=== PATIENT | female | born 1950 | race Caucasian/White ===

== ENCOUNTER 2016-07-27 23:10 | Emergency (ER) | payer OTHER ==
[~2016-07-27 23:10] MED LIST: AUGM875T PO; COLA100C3 PO; FLUT50SP EACH NARE; LIDO5CRE8 RECTAL; MEDR4PAK PO; MUPI2OIN TOPICAL; NAPR220T95 PO; OMEP20CA2 PO; TRIAPOW
[2016-07-27 23:13] VITALS: BP 156/76; PULSE 69; RESP 15; TEMP 98.5; O2SAT 97
[2016-07-28] MEDS ORDERED: RESP: ALBUTEROL 2.5 MG/IPRATROPIUM 0.5 MG NEB (SCH) NEB ONE
--- NOTE | 2016-07-28 00:16 | RADRPT ---
EXAM DATE/TIME: 07/28/2016 00:19 [place] COMPARISON: No previous studies available for comparison. INDICATIONS : Cough and cold symptoms. MEDICAL HISTORY : None. SURGICAL HISTORY : None. ENCOUNTER: Initial ACUITY: 1 day PAIN SCORE: 0/10 LOCATION: Bilateral chest FINDINGS: PA and lateral views of the chest demonstrate the lungs to be symmetrically aerated without evidence of mass, infiltrate or effusion. The cardiomediastinal contours are unremarkable. Osseous structure s are intact. CONCLUSION: No acute disease. Tay Velasquez MD on July 28, 2016 at 0:12 Board Certified Radiologist. This report was verified electronically.
[2016-07-28 00:38] LABS: AUTOMATED NEUTROPHIL # 3.9 TH/MM3 (1.8-7.7); BASOPHIL # 0.1 TH/MM3 (0-0.2); BASOPHIL % 0.9 % (0.0-2.0); EOSINOPHIL # 0.2 TH/MM3 (0-0.4); HEMATOCRIT 36.6 % (35.0-46.0); HEMO FLAGS DIFF FINAL; LYMPH % 14.4 % (9.0-44.0); LYMPHOCYTE # 0.8 TH/MM3 (1.0-4.8); MEAN CELL VOLUME 87.5 FL (80.0-100.0); MEAN CORPUSCULAR HEMOGLOBIN 28.7 PG (27.0-34.0); MEAN CORPUSCULAR HGB CONC 32.7 % (32.0-36.0); MONO % 10.5 % (0.0-8.0); NEUT % 71.2 % (16.0-70.0); PLATELET COUNT 206 TH/MM3 (150-450); RED BLOOD COUNT 4.18 MIL/MM3 (4.00-5.30); RED CELL DISTRIBUTION WIDTH 13.7 % (11.6-17.2); WHITE BLOOD COUNT 5.4 TH/MM3 (4.0-11.0)
[2016-07-28 00:54] LABS: BICARBONATE 27.4 MEQ/L (21.0-32.0); POTASSIUM 3.5 MEQ/L (3.5-5.1)
[2016-07-28] MEDS ORDERED: ALBUAER3 INH (01:11)
[2016-07-28] MEDS ORDERED: PRED50 PO (01:11)
--- NOTE | 2016-07-28 01:11 | PD ---
HPI Chief Complaint: Cold / Flu Symptoms Time Seen by Provider: 23:51 Travel History International Travel<30 days: No Contact w/Intl Traveler<30days: No Traveled to known affect area: No History of Present Illness HPI Patient is a 66-year-old female comes in complaining of a cough for the past 3 months. She has been to see her doctor here as well as a doctor in [facility] and has had 2 courses of antibiotics but continues to cough. She complains of nasal congestion, and feels a dripping in her throat. She only has pain when she coughs too much or feel short of breath when coughing. She has not had any fever, but reports chills. She says today she was feeling worse, so she came in today. She denies any leg swelling or leg pain. 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 She smoked cigarettes in the past, but very few. PFSH Past Medical History Medical History: Denies Significant Hx Respiratory: Yes (PNA) Past Surgical History Cholecystectomy: Yes Hysterectomy: Yes Social History Alcohol Use: No Tobacco Use: No Substance Use: No Allergies-Medications (Allergen,Severity, Reaction): Coded Allergies: No Known Allergies (Unverified , 07/27/16) Reported Meds & Prescriptions Reported Meds & Active Scripts Active Proair Hfa 8.5 GM Inh (Albuterol Sulfate) 90 Mcg/Act Aer 2 Puff INH Q4-6H PRN 108 mcg/actuation Prednisone 50 Mg Tab 50 Mg PO DAILY 5 Days Review of Systems Except as stated in HPI: all other systems reviewed are Neg General / Constitutional: Positive: Chills, No: Fever HENT: No: Headaches, Lightheadedness Cardiovascular: No: Chest Pain or Discomfort Respiratory: Positive: Cough Gastrointestinal: No: Nausea, Vomiting Musculoskeletal: No: Edema, Pain Skin: No Rash, No Change in Pigmentation Neurologic: No: Weakness, Dizziness Physical Exam Narrative GENERAL: Awake and alert, in no acute distress. SKIN: Warm and dry. HEAD: Atraumatic. Normocephalic. EYES: Pupils equal and round. No scleral icterus. ENT: Mucous membranes pink and moist. No tonsillar enlargement or exudates. NECK: Trachea midline. No JVD. CARDIOVASCULAR: Regular rate and rhythm. No murmur appreciated. RESPIRATORY: No accessory muscle use. Clear to auscultation. Breath sounds equal bilaterally. GASTROINTESTINAL: Abdomen soft, non-tender, nondistended. MUSCULOSKELETAL: No obvious deformities. No clubbing. No cyanosis. No edema. NEUROLOGICAL: Awake and alert. No obvious cranial nerve deficits. Motor grossly within normal limits. Normal speech. PSYCHIATRIC: Appropriate mood and affect; insight and judgment normal. Data Data Last Documented VS Vital Signs Date Time Temp Pulse Resp B/P Pulse Ox O2 Delivery O2 Flow Rate FiO2 07/27/16 23:13 98.5 69 15 156/76 97 Room Air Orders Complete Blood Count With Diff (07/27/16 23:56) Basic Metabolic Panel (Bmp) (07/27/16 23:56) Chest, Pa & Lat (07/27/16 ) Influenzae A/B Antigen (07/27/16 23:56) Albuterol-Ipratropium Neb (Duoneb Neb) (07/28/16 00:00) Labs Laboratory Tests Test 07/28/16 00:15 White Blood Count 5.4 TH/MM3 Red Blood Count 4.18 MIL/MM3 Hemoglobin 12.0 GM/DL Hematocrit 36.6 % Mean Corpuscular Volume 87.5 FL Mean Corpuscular Hemoglobin 28.7 PG Mean Corpuscular Hemoglobin 32.7 % Concent Red Cell Distribution Width 13.7 % Platelet Count 206 TH/MM3 Mean Platelet Volume 9.1 FL Neutrophils (%) (Auto) 71.2 % Lymphocytes (%) (Auto) 14.4 % Monocytes (%) (Auto) 10.5 % Eosinophils (%) (Auto) 3.0 % Basophils (%) (Auto) 0.9 % Neutrophils # (Auto) 3.9 TH/MM3 Lymphocytes # (Auto) 0.8 TH/MM3 Monocytes # (Auto) 0.6 TH/MM3 Eosinophils # (Auto) 0.2 TH/MM3 Basophils # (Auto) 0.1 TH/MM3 CBC Comment DIFF FINAL Differential Comment Sodium Level 141 MEQ/L Potassium Level 3.5 MEQ/L Chloride Level 105 MEQ/L Carbon Dioxide Level 27.4 MEQ/L Anion Gap 9 MEQ/L Blood Urea Nitrogen 16 MG/DL Creatinine 0.76 MG/DL Estimat Glomerular Filtration 77 ML/MIN Rate Random Glucose 96 MG/DL Calcium Level 9.2 MG/DL [facility] Medical Decision Making Medical Screen Exam Complete: Yes Emergency Medical Condition: Yes Differential Diagnosis Bronchitis versus COPD versus allergies versus pneumonia versus influenza Narrative Course Patient is a 66-year-old female comes in complaining of cough for 3 months. Exam shows no acute abnormalities. IV established and labs sent. Labs show no acute abnormalities. Flu swab is negative. Chest x-ray performed shows no acute abnormalities. Patient given DuoNeb with improvement of symptoms. I discussed with her and her son that she is likely reacting to pollen or things in the air. Advised to take [id number] allergy medication. Given prescription for albuterol as well as prednisone. Advised follow-up with her doctor. Advised to return to the ED as needed for any worsening symptoms. Patient and her son are comfortable with this plan at this time. Diagnosis Primary Impression: Allergic rhinitis Qualified Code: J30.9 - Allergic rhinitis, unspecified allergic rhinitis trigger, unspecified rhinitis seasonality Patient Instructions: General Instructions, Reactive Airways Disease (ED) Additional Instructions: Follow up with your doctor. Take an over the counter allergy medication ( claritin or zyrtec or danielle). Use the albuterol inhaler as needed for cough/ shortness of breath. Return to the ED as needed for any worsening symptoms. Scripts Albuterol 8.5 GM Inh (Proair Hfa 8.5 GM Inh)90 Mcg/Act Aer2 Puff INH Q4-6H PRN ( SHORTNESS OF BREATH) #1 INHALER Ref 0 108 mcg/actuation Prov:Tata Diggs MD 07/28/16 Prednisone 50 Mg Tab50 Mg PO DAILY 5 Days Ref 0 Prov:Tata Diggs MD 07/28/16 Disposition: 01 DISCHARGE HOME Condition: Stable Tata Diggs MD Jul 28, 2016 01:11
== END 2016-07-28 02:30 | disposition home or self-care (01) ==
LOC: NEPA 23:10
DX: J30.9 Allergic rhinitis, unspecified (principal); R06.02 Shortness of breath; R09.81 Nasal congestion
CPT/HCPCS: 71020; 80048; 85025; 87804; 94664; 99283